=== PATIENT | female | born 1960 | race African-American/Black ===

== ENCOUNTER 2017-09-14 19:29 | Emergency (ER) | payer BC ==
[2017-09-14 20:08] VITALS: BP 143/86; PULSE 89; BMI 26.5
--- NOTE | 2017-09-14 20:09 | PDOC ---
Rapid Medical Evaluation Time Seen by Provider: 09/14/17 20:03 Medical Evaluation: Allergies Allergy/AdvReac Type Severity Reaction Status Date / Time chocolate flavor Allergy "SWELLING, Verified 06/17/14 10:13 TINGLING SENSATION" No Known Drug Allergies Allergy Verified 06/17/14 10:13 shellfish derived Allergy "SWELLING,TINGLING Verified 06/17/14 10:13 SENSATION" NUTS Allergy "SWELLING,TINGLING Uncoded 06/17/14 10:13 SENSATION" 09/14/17 20:04 I have performed a brief in-person evaluation of this patient. The patient presents with a chief complaint of: left hand numbness/tightness, x 3 weeks, saw PCP [facility], has appt with neuro on , denies current pain but "the whole pinky is tight" Pertinent physical exam findings: well appearing, no deformity, neurovascularly intact, FROM I have ordered the following: nothing The patient will proceed to the ED for further evaluation. Discharge Disposition - Diagnosis Finger problem - Referrals - Patient Instructions - Post Discharge Activity
--- NOTE | 2017-09-14 22:15 | PDOC ---
History of Present Illness - General Chief Complaint: Pain Stated Complaint: PAIN Time Seen by Provider: 09/14/17 20:03 History Source: Patient Exam Limitations: No Limitations - History of Present Illness Initial Comments: 09/14/17 22:11 56-year-old female presents to the emergency room for evaluation of left fifth and fourth digit tingling for the past 3 months without weakness, swelling or skin discoloration. Patient denies neck pain radiation of pain, history of carpal tunnel. Timing/Duration: other Severity: mild Associated Symptoms: reports: denies symptoms Past History - Travel Traveled outside of the country in the last 30 days: No - Past Medical History Allergies/Adverse Reactions: Allergies Allergy/AdvReac Type Severity Reaction Status Date / Time chocolate flavor Allergy "SWELLING, Verified 06/17/14 10:13 TINGLING SENSATION" No Known Drug Allergies Allergy Verified 06/17/14 10:13 shellfish derived Allergy "SWELLING,TINGLING Verified 06/17/14 10:13 SENSATION" NUTS Allergy "SWELLING,TINGLING Uncoded 06/17/14 10:13 SENSATION" Home Medications: Ambulatory Orders Hydrochlorothiazide 12.5 mg PO ASDIR 09/14/17 Anemia: No Asthma: No Cancer: No Cardiac Disorders: No CVA: No COPD: No CHF: No Dementia: No Diabetes: No GI Disorders: No Disorders: No HTN: Yes Hypercholesterolemia: No Liver Disease: No Seizures: No Thyroid Disease: No - Surgical History Orthopedic Surgery: No - Suicide/Smoking/Psychosocial Hx Smoking History: Never smoked Have you smoked in the past 12 months: No Information on smoking cessation initiated: No Hx Alcohol Use: No Drug/Substance Use Hx: No Substance Use Type: None Hx Substance Use Treatment: No Patient Lives Alone: No Lives with/in: spouse/SO Review of Systems - Review of Systems Able to Perform ROS?: No Constitutional: No: Symptoms Reported Integumentary: No: Symptoms Reported Neurological: Yes: Paresthesia Endocrine: No: Symptoms Reported Hematologic/Lymphatic: No: Symptoms Reported *Physical Exam - Vital Signs Last Vital Signs Temp Pulse Resp BP Pulse Ox 89 18 143/86 100 09/14/17 20:05 09/14/17 20:05 09/14/17 20:05 09/14/17 20:05 - Physical Exam General Appearance: Yes: Nourished, Appropriately Dressed. No: Apparent Distress HEENT: positive: EOMI, PING. negative: Pale Conjunctivae Neck: positive: Supple. negative: Tender, Decreased range of motion Respiratory/Chest: positive: Lungs Clear, Normal Breath Sounds. negative: Respiratory Distress, Accessory Muscle Use Cardiovascular: positive: Regular Rhythm, Regular Rate. negative: Murmur Extremity: positive: Normal Capillary Refill, Normal Inspection, Normal Range of Motion. negative: Tender Integumentary: positive: Normal Color, Warm, Moist Neurologic: positive: Motor Strength 5/5 (5 + left and grasp). negative: Numbness, Sensory Deficit ED Treatment Course - RADIOLOGY Radiology Studies Ordered: Category Date Time Status SPINE-CERVICAL [RAD] Stat Radiology 09/14/17 21:45 Taken Medical Decision Making - Medical Decision Making 09/14/17 22:00 Patient with subjective complaints of pins and needles to left fourth and fifth digit. Patient has had no acute or cervical tenderness on exam. Patient offered x-ray to rule out radiculopathy. Patient agreed. X-ray ordered. 09/14/17 22:14 X-ray shows no acute fracture or subluxation. There is narrowing of the cervical column at C5-C6 *DC/Admit/Observation/Transfer Diagnosis at time of Disposition: Cervical radiculopathy at C6 - Discharge Dispostion Disposition: HOME Condition at time of disposition: Good - Referrals Referrals: Iron Burton MD [Primary Care Provider] - - Patient Instructions Printed Discharge Instructions: DI for Cervical Radiculopathy Additional Instructions: At this time I recommended taking Motrin 600 mg every 8 hours to decrease inflammation and discomfort. Follow-up with her primary care physician if further management or imaging is needed. - Post Discharge Activity
== END 2017-09-14 22:19 | disposition home or self-care (01) ==
LOC: JERFT 19:29
DX: M54.12 Radiculopathy, cervical region (principal)
CPT/HCPCS: 72050-TC-FY; 99281-25